=== PATIENT | male | born 1970 | race Caucasian/White ===

== ENCOUNTER 2024-09-25 12:24 | Inpatient (IN) | payer MEDICAID ==
[~2024-09-25] VITALS: Ht 167.6 cm; Wt 78.5 kg
[2024-09-25 12:24] VITALS: BP_SYST 152; PULSE 114; RESP 20; TEMP 97.8; O2SAT 87
[2024-09-25] MEDS: ALBUTEROL SULFATE 0.083% 2.5 MG/3 ML VIAL.NEB INH ONE ×2 (12:48→14:03)
[2024-09-25] MEDS: IPRATROPIUM BROM 0.5 MG/2.5 ML VIAL.NEB (ATROVENT) INH ONE ×2 (12:49→14:04)
[2024-09-25] MEDS: DEXAMETHASONE SOD PHOSPHATE 10 MG/ML VIAL PO ONE (13:19)
[2024-09-25] MEDS: methylPREDNISolone SOD SUCC/PF 62.5 MG/ML VIAL IM ONE (16:28)
[2024-09-25 17:42] LABS: BASOPHILS % (AUTO) 0.1 % (0.0-2.0); EOSINOPHILS % (AUTO) 0.3 % (0.0-4.0); HEMATOCRIT 43.3 % (36-54); HEMOGLOBIN 14.8 g/dL (14.0-18.0); LYMPHOCYTES # (AUTO) 0.5 K/uL (1.0-5.5); MEAN CORPUSCULAR HEMOGLOBIN 31 pg (27-31); MEAN CORPUSCULAR HGB CONC 34 % (32-36); MEAN CORPUSCULAR VOLUME 90 fL (79.0-98.0); MONOCYTES # (AUTO) 0.1 K/uL (0.0-1.0); MONOCYTES % (AUTO) 0.8 % (1.7-9.3); NEUTROPHILS # (AUTO) 6.4 K/uL (1.8-7.7); NEUTROPHILS % (AUTO) 91.8 % (40.0-70.0); PLATELET COUNT (AUTO) 289 K/uL (130-430); RED BLOOD CELL COUNT(AUTO) 4.82 MIL/uL (4.2-6.2); RED CELL DISTRIBUTION WIDTH 13.5 % (9.0-15.0)
[2024-09-25 17:50] LABS: INFLUENZA TYPE A Negative (NEGATIVE); INFLUENZA TYPE B NEGATIVE (NEGATIVE)
[2024-09-25 18:45] LABS: ANION GAP 8 (5-15); CALCIUM 9.3 mg/dL (8.4-11.0); CARBON DIOXIDE 27 mmol/L (23-29); CHLORIDE 104 mmol/L (98-107); CREATININE 0.64 mg/dL (0.55-1.30); GFR AFRICAN AMERICAN 167 mL/min (>90); GFR NON AFRICAN-AMERICAN 138 mL/min (>90); GLUCOSE 157 mg/dL (74-106); POTASSIUM 3.7 mmol/L (3.5-5.1); SODIUM SERUM 139 mmol/L (136-145); UREA NITROGEN, BLOOD 6 mg/dL (8-21)
[2024-09-25] MEDS ORDERED: ALBMDI INH (19:58)
[2024-09-25] MEDS ORDERED: ALBU1.257 INH (19:58)
[2024-09-25] MEDS ORDERED: MONT-47 PO (19:58)
[2024-09-25 21:06] VITALS: BP_SYST 93; PULSE 89; O2SAT 93
[2024-09-25 23:29] VITALS: BP_SYST 106; PULSE 81; RESP 22; TEMP 96.7
[2024-09-25 23:30] VITALS: O2SAT 94
[2024-09-26] VITALS (7 sets, daily range): BP systolic 107–126; PULSE 58–75; RESP 26–36; TEMP 97–97.9; O2SAT 92–96
[2024-09-26] MEDS: IPRATROPIUM/ALBUTEROL SULFATE 3 ML AMPUL.NEB (DUONEB) INH PRN (06:52)
[2024-09-26] MEDS: ACETAMINOPHEN 325 MG TABLET PO PRN (11:07)
[2024-09-26] MEDS: cefTRIAXone 1 GM in D5W 50 ML IV SCH (11:48)
[2024-09-26] MEDS: methylPREDNISolone SOD SUCC/PF 62.5 MG/ML VIAL IVP ONE (11:49)
[2024-09-26] MEDS: guaiFENesin/DEXTROMETHORPHAN 10 ML UDC PO PRN (11:56)
[2024-09-26] MEDS ORDERED: ACETAMINOPHEN 325 MG TABLET PO PRN (12:00)
[2024-09-26] MEDS ORDERED: LORazepam 2 MG/ML VIAL IVP PRN (12:00)
[2024-09-26] MEDS ORDERED: HYDROcodone/ACETAMIN 5-325 MG TAB (NORCO/ VICODIN) PO PRN (12:00)
[2024-09-26] MEDS ORDERED: ONDANSETRON HCL 4 MG/2 ML VIAL IVP PRN (12:00)
[2024-09-26] MEDS ORDERED: NALOXONE HCL 0.4 MG/ML AMP (NARCAN) IVP PRN ×2 (12:00)
[2024-09-26] MEDS ORDERED: HYDROcodone/ACETAMIN 10-325 MG TAB PO PRN (12:00)
[2024-09-26] MEDS: AZITHROMYCIN 250 MG in NS 250 ML IV SCH (12:44)
[2024-09-26] MEDS: MONTELUKAST 10 MG TABLET PO ONE (15:23)
[2024-09-26] MEDS: NORMAL SALINE 5 ML DISP.SYRIN IVF SCH (15:23)
[2024-09-26] MEDS: methylPREDNISolone SOD SUCC/PF 62.5 MG/ML VIAL IVP SCH (20:41)
[2024-09-27] VITALS (7 sets, daily range): BP systolic 101–115; PULSE 52–62; RESP 16–24; TEMP 96.9–97.9; O2SAT 95–97
[2024-09-27 07:44] LABS: BASOPHILS % (AUTO) 0.2 % (0.0-2.0); LYMPHOCYTES # (AUTO) 1.2 K/uL (1.0-5.5); LYMPHOCYTES % (AUTO) 8.4 % (20.5-51.5); MEAN CORPUSCULAR HEMOGLOBIN 31 pg (27-31); MEAN CORPUSCULAR HGB CONC 33 % (32-36); MEAN CORPUSCULAR VOLUME 92 fL (79.0-98.0); MONOCYTES # (AUTO) 0.3 K/uL (0.0-1.0); MONOCYTES % (AUTO) 1.8 % (1.7-9.3); NEUTROPHILS # (AUTO) 13.4 K/uL (1.8-7.7); NEUTROPHILS % (AUTO) 89.6 % (40.0-70.0); PLATELET COUNT (AUTO) 320 K/uL (130-430); RED CELL DISTRIBUTION WIDTH 13.7 % (9.0-15.0); WHITE BLOOD COUNT (AUTO) 14.9 K/uL (4.8-10.8)
[2024-09-27 08:31] LABS: ALBUMIN 3.9 g/dL (3.4-4.8); CALCIUM 9.6 mg/dL (8.4-11.0); CREATININE 0.6 mg/dL (0.55-1.30); POTASSIUM 4.7 mmol/L (3.5-5.1); TOTAL BILIRUBIN 0.3 mg/dL (0.0-1.0); TOTAL PROTEIN, SERUM 8.6 g/dL (6.4-8.3)
[2024-09-27] MEDS: MONTELUKAST 10 MG TABLET PO SCH (09:12)
[2024-09-28] VITALS (9 sets, daily range): BP systolic 104–116; PULSE 46–62; RESP 16–19; TEMP 97–98.4; O2SAT 4–98
[2024-09-28 07:26] LABS: BASOPHILS % (AUTO) 0.2 % (0.0-2.0); HEMATOCRIT 44.5 % (36-54); HEMOGLOBIN 14.7 g/dL (14.0-18.0); LYMPHOCYTES # (AUTO) 1.6 K/uL (1.0-5.5); LYMPHOCYTES % (AUTO) 16.4 % (20.5-51.5); MEAN CORPUSCULAR HEMOGLOBIN 30 pg (27-31); MEAN CORPUSCULAR HGB CONC 33 % (32-36); MEAN CORPUSCULAR VOLUME 92 fL (79.0-98.0); MONOCYTES # (AUTO) 0.3 K/uL (0.0-1.0); MONOCYTES % (AUTO) 2.6 % (1.7-9.3); NEUTROPHILS # (AUTO) 7.8 K/uL (1.8-7.7); NEUTROPHILS % (AUTO) 80.8 % (40.0-70.0); PLATELET COUNT (AUTO) 289 K/uL (130-430); RED BLOOD CELL COUNT(AUTO) 4.84 MIL/uL (4.2-6.2); RED CELL DISTRIBUTION WIDTH 13.4 % (9.0-15.0); WHITE BLOOD COUNT (AUTO) 9.7 K/uL (4.8-10.8)
[2024-09-28 07:44] LABS: CALCIUM 9.1 mg/dL (8.4-11.0); CREATININE 0.64 mg/dL (0.55-1.30); FREE T4 (FREE THYROXINE) 1.1 ng/dL (0.6-1.6); POTASSIUM 4.5 mmol/L (3.5-5.1); THYROID STIMULATING HORMONE 0.39 uIu/mL (0.34-4.82)
[2024-09-28 07:46] LABS: ERYTHROCYTE SEDIMENTATION RATE 42 MM/HR (0-15)
== END 2024-09-29 23:00 | disposition home or self-care (01) | DRG 139 ==
LOC: SED 12:24 → STU 19:14
PROVIDERS: ADMIT Preventive Medicine Preventive Medicine/Occupational Environmental Medicine; ATTEND Preventive Medicine Preventive Medicine/Occupational Environmental Medicine
DX: J18.9 Pneumonia, unspecified organism (principal); J96.01 Acute respiratory failure with hypoxia; J45.901 Unspecified asthma with (acute) exacerbation; E83.41 Hypermagnesemia; R73.9 Hyperglycemia, unspecified; Z20.822 Contact with and (suspected) exposure to COVID-19; Z79.899 Other long term (current) drug therapy
CPT/HCPCS: 36415; 71045; 80048; 80053; 83735; 83880; 84439; 84443; 84484; 85025; 85651; 93005; 93306; 94640; 94760; 96372; 99291; G0378; J0456; J0696; J1100; J2930; J7030; J7050; J7060